=== PATIENT | male | born 1970 | race Caucasian/White ===

== ENCOUNTER 2025-01-27 08:30 | Outpatient (RCR) | payer MEDICAID, SELFPAY ==
--- NOTE | 2025-01-27 12:03 | HP.PTEVAL_ITS ---
Patient's Visit Information Visit Information Visit Information: BHAVESH DOMINIQUE is a 54 year old M referred to Physical Therapy by Dr. Bhavesh Burns MD with a diagnosis of B shoulder pain. Date of Evaluation: 01/18/25 Physical Therapist: Luis Heath DPT Visit Plan Frequency: 1-2x /Week Duration: 6 Weeks Plan: RTC strengthening, periscapular strengthening of B shoulders. Subjective Subjective: Pt. is here today for his initial evaluation with diagnosis of B shoulder pain. Pt. reports his biggest concern is with his R shoulder. Pt. did have surgery on his L shoulder years ago. He reports recently over the past few years getting back into working out at gym. Since doing so he is noticing increased popping and pain. He reports high levels of pain with any OH pressing, and has basically given up on this motion. He also reports having to do supinated bench press rather than traditional secondary to pain. He does not do any back squatting as it is hard to get into that position. Pt. did have an injection, but reports still having some pain. His pain does wake him up at night as well. Pt. is currently off work until spring and would like to get this all figured out prior to going back to work. Pain R shoulder: Pain Intensity (Out of 10): 3 Pain Intensity Range: 2 and 7 L shoulder: Pain Intensity (Out of 10): 3 Pain Intensity Range: 2 and 7 Objective Objective: POSTURE: Pt. has fairly normal B shoulder posture. Normal shoulder heights. PALPATION: Pt. has tenderness at R AC joint and subacromial space anterior/lateral aspect. NEURO: Pt. has normal DTR of BUEs. Pt. has normal sensation throughout. ROM: R shoulder: flexion 165deg increase NW, abd 160deg increase NW, functional ER C2 increase NW, functional IR L5 increase NW MMT: Pt. has good strength throughout deltoid, mid trap, UT. Pt. did have some pain with ER motions, worse with increased abducted ER motions. No issues with IR. Special Tests R Shoulder Drop Sign - IS Test: Negative R Shoulder Empty Can - SS: Positive R Shoulder Belly Press - SupScap: Negative R Shoulder Neer - Impingement: Positive R Shoulder Steele Jb - Impingement: Positive R Shoulder Speeds Test - Labrum/Biceps: Positive L Shoulder Empty Can - SS: Negative L Shoulder Neer - Impingement: Negative L Shoulder Steele Jb - Impingement: Positive L Shoulder Biceps Load Test - Labrum: Negative L Shoulder Speeds Test - Labrum/Biceps: Negative Balance/Special Test Scores Quick DASH Score: 22.7250 Goals Goal 1:: LTG: Pt. to be I with HEP for RTC and periscapular strengthening Goal Time Frame: 4-6 Weeks Goal 2:: STG: pt. to sleep throughout the night without increase in symptoms. Goal Time Frame: 2 Weeks Goal 3:: LTG: pt. to have 5/5 strength throughout RTC and scapular musculature. Goal Time Frame: 4-6 Weeks Goal 4:: LTG: Pt. to resume all gym exercises without increase in B shoulder pain. Goal Time Frame: 4-6 Weeks Goal 5:: LTG: pt. to complete all work activities without increase in B shoulder pain. Goal Time Frame: 4-6 Weeks Rehabilitation Potential Physical Therapy Diagnosis: Pt. has signs and symptoms consistent with B shoulder, R worse than L. Pt. has marked pain with OH movements. Pt. would benefit from PT to address his increased pain, weakness and hypomobility. Rehabilitation Potential: Good Anticipated Interventions Patient/Client Instruction: Educate patient on: Condition, Plan of Care, Risk Factors and Benefits of Fitness Program For the Purpose of:: To foster healthy habits, To improve decision making, To facilitate caregiver knowledge, To improve self management, To prevent re-injury and To improve ability to perform tasks related to life management Therapeutic Exercise to Include: Strength training, Postural training, Flexibi lty training and Scapular Strength/Stabilization For the Purpose of:: To decrease pain, To increase ROM, To improve nutrient delivery to tissue, To decrease level of supervision to perform tasks, To improve ability of physical actions for home/community/work/leisure, To decrease soft tissue restriction and To increase flexibility/ROM Text: Thank you for the opportunity to evaluate your patient. For Medicare and Medicare HMO plans, please review the plan of care and approve it. It will need to be FAXED BACK to us at [phone] for Medicare purposes. For Medicare only, by signing this I certify the plan of care. Please let me know if there are questions or concerns regarding this plan of care. Physician Signature: Date:
== END 2025-01-27 19:00 | disposition home or self-care (01) ==
LOC: PT 08:30
PROVIDERS: PCP Nurse Practitioner Family; Referring Provider Orthopaedic Surgery Sports Medicine; Visit Provider Orthopaedic Surgery Sports Medicine
DX: M25.511 Pain in right shoulder (principal); M25.512 Pain in left shoulder
CPT/HCPCS: 97110; 97161